=== PATIENT | male | born 1955 | race Caucasian/White ===

== ENCOUNTER 2017-05-25 06:54 | Emergency (ER) | payer BC, OTHER ==
[2017-05-25 07:12] VITALS: BP 146/88; PULSE 74; RESP 16; TEMP 98.1; O2SAT 99
--- NOTE | 2017-05-25 08:26 | ED PDOC ---
Lower Extremity Pain/Injury Time Seen by Provider: 05/25/17 07:12 Chief Complaint (Nursing): Lower Extremity Problem/Injury Chief Complaint (Provider): Right foot pain History Per: Patient History/Exam Limitations: no limitations Onset/Duration Of Symptoms: Days (x 2) Additional Complaint(s): Giuseppe Rosales is a 61 y/o male with a history of hypertension, hypercholesterolemia, and gout, who presents to the emergency department complaining of right foot pain, ongoing since last night (05/24/2017). Patient denies trauma, numbness, and weakness. Self-medicated with Aleve and pain patch , without relief of symptoms. Patient denies having similar pain in the past. PMD: Unknown Past Medical History Reviewed: Historical Data, Nursing Documentation, Vital Signs Vital Signs: Last Vital Signs Temp 98.1 F 05/25/17 07:08 Pulse 74 05/25/17 07:08 Resp 16 05/25/17 07:08 BP 146/88 05/25/17 07:08 Pulse Ox 99 05/25/17 07:08 - Medical History PMH: HTN, Hypercholesterolemia Other PMH: Gout - Surgical History Surgical History: No Surg Hx - Family History Family History: States: Unknown Family Hx - Social History Current smoker - smoking cessation education provided: No Alcohol: Social Drugs: Denies - Home Medications Home Medications: Ambulatory Orders Medication Instructions Recorded Methylprednisolone [Medrol Dose 4 mg PO DAILY #21 mg 05/25/17 Pack (21 tabs)] Naproxen [Naprosyn] 500 mg PO BID PRN #15 tablet 05/25/17 - Allergies Allergies/Adverse Reactions: Allergies Allergy/AdvReac Type Severity Reaction Status Date / Time No Known Allergies Allergy Verified 05/25/17 07:11 Review of Systems ROS Statement: Except As Marked, All Systems Reviewed And Found Negative Constitutional: Negative for: Other (Trauma, fall) Musculoskeletal: Positive for: Foot Pain (Right foot pain) Neurological: Negative for: Weakness, Numbness Physical Exam - Reviewed Nursing Documentation Reviewed: Yes Vital Signs Reviewed: Yes - Physical Exam Appears: Positive for: Well, Non-toxic, No Acute Distress Head Exam: Positive for: ATRAUMATIC, NORMAL INSPECTION, NORMOCEPHALIC Skin: Positive for: Normal Color, Warm, Dry Eye Exam: Positive for: EOMI, Normal appearance, PERRL Neck: Positive for: Normal, Painless ROM, Supple Cardiovascular/Chest: Positive for: Regular Rate, Rhythm. Negative for: Murmur Respiratory: Positive for: Normal Breath Sounds. Negative for: Accessory Muscle Use, Respiratory Distress Pulses-Dorsalis Pedis (L): 2+ Pulses-Dorsalis Pedis (R): 2+ Gastrointestinal/Abdominal: Positive for: Normal Exam, Soft. Negative for: Tenderness Back: Positive for: Normal Inspection. Negative for: L CVA Tenderness, R CVA Tenderness, Vertebral Tenderness Extremity: Positive for: Tenderness (First MTP joint tenderness that extends laterally), Pedal Edema. Negative for: Other (crepitus) Neurologic/Psych: Positive for: Alert, Oriented, Other (Muscular strength 5/5) - Laboratory Results Result Diagrams: 05/25/17 08:20 05/25/17 08:20 - ECG O2 Sat by Pulse Oximetry: 99 (RA) Pulse Ox Interpretation: Normal Medical Decision Making Medical Decision Making: Time: 08:04 Initial Impression: Right foot pain Initial Plan: --Labs --Pending X-Ray Right Foot 3 views --Pending Podiatry consult Time: 10:40 Clinical Impression: Gout Upon provider evaluation patient is medically stable, and requires no further treatment in the ED at this time. Patient will be discharged with Rx for Methylprednisolone 4 mg PO and Naproxen 500 mg PO. Counseling was provided and all questions were answered regarding diagnosis and need for follow up with podiatry. There is agreement to discharge plan. Return if symptoms persist or worsen. Scribe Attestation: Documented by Leona Zuleta, acting as a scribe for Cynthia Herrmann MD Provider Scribe Attestation: All medical record entries made by the Scribe were at my direction and personally dictated by me. I have reviewed the chart and agree that the record accurately reflects my personal performance of the history, physical exam, medical decision making, and the department course for this patient. I have also personally directed, reviewed, and agree with the discharge instructions and disposition. Disposition - Clinical Impression Clinical Impression: Gout - Patient ED Disposition Is Patient to be Admitted: No Doctor Will See Patient In The: Office Counseled Patient/Family Regarding: Diagnosis, Need For Followup, Rx Given - Disposition Disposition: Routine/Home Disposition Time: 10:40 Condition: STABLE Additional Instructions: FOLLOW-UP WITH PODIATRY. Prescriptions: Methylprednisolone [Medrol Dose Pack (21 tabs)] 4 mg PO DAILY #21 mg Naproxen [Naprosyn] 500 mg PO BID PRN #15 tablet PRN Reason: Pain, Moderate (4-7) Instructions: Gout (ED) Forms: [facility] ED School/Work Excuse
[2017-05-25 08:31] LABS: BASO % 0.9 % (0.0-2.0); EOS # 0.2 K/uL (0.0-0.7); EOS % 4.5 % (0.0-4.0); HEMOGLOBIN 14.9 g/dL (12.0-18.0); LYMPH % 36.8 % (20.0-40.0); MEAN CORPUSCULAR HEMOGLOBIN 29.4 pg (27.0-31.0); MEAN CORPUSCULAR HGB CONC 33.4 g/dL (33.0-37.0); MEAN PLATELET VOLUME 8.3 fl (7.2-11.7); MONO # 0.7 K/uL (0.0-0.8); MONO % 12.9 % (0.0-10.0); NEUT # 2.5 K/uL (1.8-7.0); NEUT % 44.9 % (50.0-75.0); NRBC % 0.1 % (0.0-0.0); RBC 5.08 Mil/uL (4.40-5.90); RED CELL DISTRIBUTION WIDTH 14.1 % (11.5-14.5); WHITE BLOOD COUNT 5.5 K/uL (4.8-10.8)
[2017-05-25 08:46] LABS: ALB/GLOB RATIO 1.4 (1.0-2.1); ALBUMIN 4.3 g/dL (3.5-5.0); ALT/SGPT 38 U/L (21-72); AST/SGOT 31 U/L (17-59); BLOOD UREA NITROGEN 19 mg/dl (9-20); GFR AFRICAN-AMERICAN > 60; GFR NON-AFRICAN AMERICAN > 60; URIC ACID 9.5 mg/Dl (3.5-8.5)
[2017-05-25 08:55] LABS: PARTIAL THROMBOPLASTIN TIME 30.8 Seconds (25.6-37.1); PROTHROMBIN TIME 11.7 Seconds (9.8-13.1)
--- NOTE | 2017-05-25 08:55 | CP.PCM.CON ---
History of Present Illness - History of Present Illness History of Present Illness: This is a 61 yo male patient who presents to ED today complaining of right foot pain x1 day in duration. Pt denies any recent trauma/injury to the foot. Says the foot is most painful when walking and had trouble sleeping overnight. Denies any previous foot problems. Denies f/n/v/c/sob/cp at this time. Pt also states that he is travelling back to [facility] later today. Review of Systems - Review of Systems Review of Systems: as per HPI Past Patient History - Past Social History Alcohol: Social Drugs: Denies - CARDIAC Hx Hypercholesterolemia: Yes Hx Hypertension: Yes - MUSCULOSKELETAL/RHEUMATOLOGICAL Hx Musculoskeletal Disorders: Yes Other/Comment: gout - PSYCHIATRIC Hx Psychophysiologic Disorder: No Hx Substance Use: No - SURGICAL HISTORY Hx Surgeries: No - ANESTHESIA Hx Anesthesia: No Meds Allergies/Adverse Reactions: Allergies Allergy/AdvReac Type Severity Reaction Status Date / Time No Known Allergies Allergy Verified 05/25/17 07:11 Physical Exam - Constitutional Appears: Well, Non-toxic, No Acute Distress - Extremities Exam Extremities exam: Negative for: calf tenderness Additional comments: right foot focused: VASC- DP/PT pulses are palpable, skin temp runs warm to cool, cap refill < 3 sec to all digits, moderate non-pitting edema noted to dorsum of foot DERM- no open lesions, no erythema, no signs infection NEURO- pedal sensation grossly intact ORTHO- tenderness noted on palpation of dorsal and plantar aspect of 2nd MTPJ, pain on ROM of 2nd MTPJ, pedal muscle strength 5/5 in all directions - Neurological Exam Neurological exam: Alert, CN II-XII Intact, Oriented x3 - Psychiatric Exam Psychiatric exam: Normal Affect, Normal Mood Results - Vital Signs Recent Vital Signs: Last Vital Signs Temp 98.1 F 05/25/17 07:08 Pulse 74 05/25/17 07:08 Resp 16 05/25/17 07:08 BP 146/88 05/25/17 07:08 Pulse Ox 99 05/25/17 08:33 - Labs Result Diagrams: 05/25/17 08:20 05/25/17 08:20 Labs: Laboratory Results - last 24 hr 05/25/17 08:20 Sodium 142 Potassium 4.0 Chloride 103 Carbon Dioxide 28 Anion Gap 15 BUN 19 Creatinine 1.1 Est GFR ( Amer) > 60 Est GFR (Non-Af Amer) > 60 Random Glucose 110 Uric Acid 9.5 H Calcium 9.0 Total Bilirubin 0.5 AST 31 ALT 38 Alkaline Phosphatase 57 Total Protein 7.5 Albumin 4.3 Globulin 3.1 Albumin/Globulin Ratio 1.4 Assessment & Plan - Assessment and Plan (Free Text) Assessment: 61 yo male pt w/ pain to right foot 2/2 to gout Plan: Pt S&E at bedside in ED Plan discussed with attending Dr. Lind in detail Chart, labs and vitals reviewed: afebrile, WBC WNL, uric acid elevated 9.5 Right foot x-ray reviewed: unremarkable, no fx or dislocations noted Recommend medrol dosepak x 6 days Recommend pt wear loose shoe and elevate as much as possible for trip to [facility] later today. Stable per podiatry service Advised pt to f/u with primary care physician at home.
--- NOTE | 2017-05-25 10:11 | RAD ---
PROCEDURE: Right Foot Radiographs. HISTORY: Distal pain COMPARISON: None available. FINDINGS: BONES: No acute displaced fracture. JOINTS: No dislocation. SOFT TISSUES: Unremarkable. No evidence of radiopaque foreign body. OTHER FINDINGS: None. IMPRESSION: No acute displaced fracture, dislocation, or significant joint effusion identified. If symptoms persist, or if there is continued clinical concern, x-ray follow-up in 7-10 days should be considered.
== END 2017-05-25 11:02 | disposition home or self-care (01) ==
LOC: H.ER 06:54
DX: M79.671 Pain in right foot (principal)